=== PATIENT | female | born 1965 | race Caucasian/White ===

== ENCOUNTER 2022-06-07 01:01 | Day surgery (SDC) | payer OTHER, SELFPAY ==
[2022-05-31 10:42] VITALS: BMI 42.5
--- NOTE | 2022-05-31 10:50 | PC.NURSE ---
Report to the Outpatient Waiting Room, entrance under the green pavilion located off [facility], at time 0630 on date 06/07/22. Planned Procedure Time: 0830. Time changes happen often and if your time is changed the preop area will call you the afternoon before. - You and your visitor will be asked to self-screen and do not enter if you have any COVID symptoms. - A mask is optional within the hospital at this time. Patients may have clear liquids (water, carbonated beverages, clear teas, apple juice) until 3 hours prior to surgery with a maximum of 20 ounces. - No food from midnight until time of surgery Take the following medications with a SIP of water the morning of surgery: LEVOTHYROXINE DO NOT STOP ANY OF YOUR OTHER PRESCRIPTION MEDICATIONS PRIOR TO SURGERY?EXCEPT THE FOLLOWING Medications to discontinue per physician: VITAMINS/SUPPLEMENTS Date to take last dose: 06/03/22 Please no make-up, nail irish, hairspray, perfume, deodorant, or body powder the day of surgery. No jewelry (including any body piercings) or valuables the day of surgery, leave them at home. Please take a shower or bath the night before, or the morning of, surgery with an antibacterial soap. Wear comfortable, loose fitting clothing. - Jewelry must be removed prior to entering the operating room. Rings and piercings that are not removed may be cut off. - The hospital will not accept responsibility for valuables. - Please leave all valuables, including medications, at home the day of surgery. If you are going home after surgery, a licensed spotter driver must drive you home. - NO public transportation without another adult if you receive anesthesia. - We recommend that an adult stay with you for 24 hours following discharge. - We also recommend that you do not drive, make important decision, drink alcoholic beverages, or take any drugs that were not prescribed by your health care provider for at least 24 hours after your discharge time. Follow any additional instructions given to you from your surgeon. If you or anyone in your household have experienced Covid symptoms in the past week, please notify your surgeon or the nurse liaison at the phone number below for possible testing. Telephone instructions given to PT - KYUNG CHRISTENSEN and asked if any additional questions and then verbalized understanding. Patient advised to call surgeon office or pre surgery nurse liaison [phone] if any additional questions.
[2022-06-07] MEDS: ACETAMINOPHEN 500 MG TABLET 1000 MG PO (07:10)
[2022-06-07 07:19] VITALS: BP 153/69; PULSE 83; RESP 14; TEMP 35.6; O2SAT 97
--- NOTE | 2022-06-07 07:27 | P.HP_ITS ---
History of Present Illness History of Present Illness Consent: Risks, benefits, and alternatives have been discussed and questions answered. Patient agrees to proceed with procedure. Chief complaint: Post Menopausal Bleeding Narrative: Ariella Estrella is a 57 year old female with postmenopausal bleeding. Pelvic ultrasound revealed a thickened endometrium. It was recommended to proceed with D&C hysteroscopy for further evaluation. Risks of infection, bl eeding, and perforation were reviewed. Possible pathology was also discussed. Patient voices understanding and agrees to proceed. Review of Systems Review of Systems: not repeated day of surgery; patient states no changes in status [facility] Past Medical History Medical History (Updated 06/07/22 @ 07:30 by Norma Luther MD) Chronic kidney disease, stage II (mild) HTN (hypertension) Hypercholesterolemia Hypothyroid Surgical History Surgical History (Updated 06/07/22 @ 07:30 by Norma Luther MD) History of carpal tunnel release History of foot surgery History of knee surgery Social History Social History Smoking status: Never smoker Alcohol intake: current Drinks per week: 4 Substance use: never Substance use type: does not use Living arrangements: with family Spiritual care concerns: No Meds Home Medications and Allergies Home Medications Medication Instructions Recorded Confirmed Type cholecalciferol (vitamin D3) 125 125 mcg PO DAILY 05/31/22 05/31/22 History mcg (5,000 unit) tablet (Vitamin D3) cranberry 500 mg capsule 500 mg PO DAILY 05/31/22 05/31/22 History finasteride 5 mg tablet 5 mg PO DAILY 05/31/22 05/31/22 History hydroxychloroquine 200 mg tablet 200 mg PO BID 05/31/22 05/31/22 History levothyroxine 175 mcg tablet 175 mcg PO DAILY 05/31/22 05/31/22 History (Synthroid) lisinopril 10 mg tablet 10 mg PO DAILY 05/31/22 05/31/22 History Allergies Allergy/AdvReac Type Severity Reaction Status Date / Time No Known Allergies Allergy Verified 06/07/22 07:23 Vital Signs Vital Signs - 24 hr 06/07/22 07:19 Temperature 96.1 F L Pulse Rate 83 Respiratory Rate 14 Blood Pressure 153/69 H Pulse Oximetry 97 Oxygen Delivery Room Air Exam Const: General: obese ( BMI of 44) Orientation/consciousness: patient oriented x3 Resp: Effort & Inspection: normal respiratory effort Cardio: Rate: regular rate GI: GI Palp: Yes Soft to palpation, No Tenderness to palpation present (GI) and No Palpable mass present : External Female Exam: normal external appearance Speculum Exam - Vagina: normal appearance of the vagina and normal vaginal discharge Speculum Exam - Cervix: normal appearance of the cervix Bimanual exam- vagina & uterus: uterine size normal and consistency normal Bimanual Exam- Adnexa, other: normal adnexae and No adnexal tenderness Neuro: General: patient oriented x3 Assessment and Plan Assessment and plan (1) Post-menopausal bleeding: Code(s): N95.0 - Postmenopausal bleeding Status: Acute Assessment and Plan: plan to proceed with D&C hysteroscopy
--- NOTE | 2022-06-07 07:27 | WPDHPUPDATE1 ---
History and Physical Update Update Date/Time: 06/07/22 07:27 History and Physical has been reviewed, including an updated exam of the patient. There are NO changes in the patient's condition. Risks, benefits, and alternatives have been discussed and questions answered. Patient agrees to proceed with procedure.
--- NOTE | 2022-06-07 08:06 | P.PNAN_ITS ---
Anes - Initial Pre Proc Eval Procedure: Operation Date: 06/07/22 08:30 Proposed Procedures p Hysteroscopy Dilation and Curettage - Norma Luther MD Date/Time: 06/07/22 08:06 Surgeon: Norma Luther MD Pre Op Diagnosis: Post Menopausal Bleeding Patient Data Age: 57 Gender: F Height: 1.8 m Weight: 140 kg Last Vital Signs Temp 35.6 C L 06/07/22 07:19 Pulse 83 06/07/22 07:19 Resp 14 06/07/22 07:19 BP 153/69 H 06/07/22 07:19 Pulse Ox 97 06/07/22 07:19 O2 Del Method Room Air 06/07/22 07:19 Allergies Allergy/AdvReac Type Severity Reaction Status Date / Time No Known Allergies Allergy Verified 06/07/22 07:23 Home Medications Medication Instructions Recorded Confirmed Type cholecalciferol (vitamin D3) 125 125 mcg PO DAILY 05/31/22 05/31/22 History mcg (5,000 unit) tablet (Vitamin D3) cranberry 500 mg capsule 500 mg PO DAILY 05/31/22 05/31/22 History finasteride 5 mg tablet 5 mg PO DAILY 05/31/22 05/31/22 History hydroxychloroquine 200 mg tablet 200 mg PO BID 05/31/22 05/31/22 History levothyroxine 175 mcg tablet 175 mcg PO DAILY 05/31/22 05/31/22 History (Synthroid) lisinopril 10 mg tablet 10 mg PO DAILY 05/31/22 05/31/22 History Patient hx anesthesia problems: none Family hx anesthesia problems: none Results Review: All pre-operative results and documents have been reviewed as part of the pre- operative evaluation. [facility] Past Medical History Medical History (Updated 06/07/22 @ 08:08 by Robin Najera MD) Chronic kidney disease, stage II (mild) HTN (hypertension) Hypercholesterolemia Hypothyroid Morbid obesity with BMI of 40.0-44.9, adult SG (obstructive sleep apnea) Surgical History Surgical History (Updated 06/07/22 @ 07:30 by Norma Luther MD) History of carpal tunnel release History of foot surgery History of knee surgery Social History Social History Smoking status: Never smoker Alcohol intake: current Drinks per week: 4 Substance use: never Substance use type: does not use Living arrangements: with family Spiritual care concerns: No Anes - Eval Final PreProcedure Day of Procedure 06/07/22 08:06 Patient weight: morbidly obese Heart: regular rate and rhythm Lungs: clear to auscultation and normal air movement Airway: Mallampati scale class II Neurological: alert and oriented Last oral intake: >/= 8 hours ASA classification: III Emergent: no Anesthetic plan: proceed Anesthesia type and monitoring: general LMA Results Review: All pre-operative results and documents have been reviewed as part of the pre- operative evaluation. Informed Consent: The patient's anesthetic plan and its attendant risks and benefits were discussed with the patient/family/POA. Questions were solicited and answers provided to the satisfaction of the patient/family/POA.
[2022-06-07] MEDS: KETOROLAC 30 MG/ML VIAL (*BKC) IV PUSH (08:32)
[2022-06-07] MEDS: LIDOCAINE HCL 1% LOCAL INJ 20 ML VIAL 10 ML INFILTRATE (08:51)
--- NOTE | 2022-06-07 08:54 | P.OP_ITS ---
Procedure Note - Detailed Date of Procedure 06/07/22 Pre-op Diagnosis Post Menopausal Bleeding Post-op Diagnosis Same Procedure Performed D&C hysteroscopy with resection of polyp Surgeon Norma Luther MD Anesthesia MAC and Local Findings uterus sounds to 8cm; large polyp arising from the right cornua; atrophic endometrium Description of Procedure The patient is taken to the operating room and placed under anesthesia in the dorsal lithotomy position. She was prepped and draped in the usual sterile fashion. [place] speculum was placed in the vagina and the cervix grasped on the anterior lip with a tenaculum. The uterus is sounded to 8cm. The diagnostic hysteroscope was placed with the above-stated findings. The Aveeta resection device was placed through the hysteroscope and the polyp removed in its entirety. The remainder of the endometrium appears severely atrophic. The sharp curette is used to curette the endometrium until a good uterine cry was noted in all areas. Minimal if any material was obtained. All instruments were then removed. The patient is taken to recovery in stable condition. Sponge, needle, and instrument counts are correct per the OR staff. Estimated Blood Loss 5 Drains No Packing No Pathology Yes ( Endometrial shavings and curettings) Complications No immediate complications Condition Stable Disposition PACU
[2022-06-07 08:57] VITALS: BP 116/68; PULSE 67; RESP 16; O2SAT 95
[2022-06-07] MEDS: LACTATED RINGERS 1,000 ML 30 ML IV CONT (08:57)
[2022-06-07 09:15] VITALS: BP 121/61; PULSE 62; RESP 12
[2022-06-07 09:45] VITALS: BP 119/52; PULSE 56; RESP 20
== END 2022-06-07 09:55 | disposition home or self-care (01) ==
PROVIDERS: Visit Provider Obstetrics & Gynecology Gynecology
PROC: 0U5B8ZZ Destruction of Endometrium, Via Natural or Artificial Opening Endoscopic (ICD-10-PCS; CPT 58563; principal; 2022-06-07 08:30)
DX: N95.0 Postmenopausal bleeding (principal); N84.0 Polyp of corpus uteri; I12.9 Hypertensive chronic kidney disease with stage 1 through stage 4 chronic kidney disease, or unspecified chronic kidney disease; N18.2 Chronic kidney disease, stage 2 (mild); E78.00 Pure hypercholesterolemia, unspecified; E03.9 Hypothyroidism, unspecified; G47.33 Obstructive sleep apnea (adult) (pediatric); E66.01 Morbid (severe) obesity due to excess calories; Z68.41 Body mass index [BMI] 40.0-44.9, adult
CPT/HCPCS: 58558; 88305; A9270; J1100; J1885; J2250; J2405; J2704; J3010; J7120

== ENCOUNTER 2023-07-25 00:51 | Day surgery (SDC) | payer OTHER, SELFPAY ==
[2023-07-14 09:58] VITALS: BMI 42.0
--- NOTE | 2023-07-14 10:05 | PC.NURSE ---
Report to the Outpatient Waiting Room, entrance under the green pavilion located off [facility], at time _0900_ on date _[id number]_. Planned Procedure Time: _1100_. Time changes happen often and if your time is changed the preop area will call you the afternoon before. - You and your visitor will be asked to self-screen and do not enter if you have any COVID symptoms. - A mask is optional within the hospital at this time. Patients may have clear liquids (water, carbonated beverages, clear teas, apple juice) until 3 hours prior to surgery with a maximum of 20 ounces. - No food from midnight until time of surgery Take the following medications with a SIP of water the morning of surgery: __Levothyroxine DO NOT STOP ANY OF YOUR OTHER PRESCRIPTION MEDICATIONS PRIOR TO SURGERY ?EXCEPT THE FOLLOWING Medications to discontinue per physician Cranberry Date to take last [id number] Please no make-up, nail tu[place], hairspray, perfume, deodorant, or body powder the day of surgery. No jewelry (including any body piercings) or valuables the day of surgery, leave them at home. Please take a shower or bath the night before, or the morning of, surgery with an antibacterial soap. Wear comfortable, loose fitting clothing. - Jewelry must be removed prior to entering the operating room. Rings and piercings that are not removed may be cut off. - The hospital will not accept responsibility for valuables. - Please leave all valuables, including medications, at home the day of surgery. If you are going home after surgery, a licensed superintendent drivers must drive you home. - NO public transportation without another adult if you receive anesthesia. - We recommend that an adult stay with you for 24 hours following discharge. - We also recommend that you do not drive, make important decision, drink alcoholic beverages, or take any drugs that were not prescribed by your health care provider for at least 24 hours after your discharge time. Follow any additional instructions given to you from your surgeon. If you or anyone in your household have experienced Covid symptoms in the past week, please notify your surgeon or the nurse liaison at the phone number below for possible testing. Telephone instructions given to __Debbie_and asked if any additional questions and then verbalized understanding. Patient advised to call surgeon office or pre surgery nurse liaison [phone] if any additional questions.
--- NOTE | 2023-07-25 07:12 | P.HP_ITS ---
History of Present Illness History of Present Illness Consent: Risks, benefits, and alternatives have been discussed and questions answered. Patient agrees to proceed with procedure. Chief complaint: Post Menopasual Bleeding Narrative: Ariella Estrella is a 58 year old female with 2 days of bright red bleeding. Patient with history endometrial polyps in her last hysteroscopy. It was recommended to undergo D&C hysteroscopy for further evaluation. Risks of infection, bleeding, perforation, and possible pathology are reviewed. Patient voices understanding and agrees to proceed. Review of Systems Review of Systems: not repeated day of surgery; patient states no changes in status [facility] Past Medical History Medical History (Updated 06/07/22 @ 08:08 by Robin NajeraMD) Chronic kidney disease, stage II (mild) HTN (hypertension) Hypercholesterolemia Hypothyroid Morbid obesity with BMI of 40.0-44.9, adult SG (obstructive sleep apnea) Surgical History Surgical History (Updated 07/25/23 @ 07:14 by Norma Luther MD) History of carpal tunnel release History of foot surgery History of hysteroscopy 2022 with endometrial polyps History of knee surgery Social History Social History Smoking status: Never smoker Alcohol intake: current Drinks per week: 4 Substance use: never Substance use type: does not use Living arrangements: with family Spiritual care concerns: No Meds Home Medications and Allergies Home Medications Medication Instructions Recorded Confirmed Type cranberry 500 mg capsule 500 mg PO DAILY 05/31/22 07/14/23 History finasteride 5 mg tablet 2.5 mg PO DAILY 05/31/22 07/14/23 History hydroxychloroquine 200 mg tablet 200 mg PO BID 05/31/22 07/14/23 History levothyroxine 175 mcg tablet 175 mcg PO DAILY 05/31/22 07/14/23 History (Synthroid) lisinopril 10 mg tablet 10 mg PO DAILY 05/31/22 07/14/23 History rosuvastatin 5 mg tablet 5 mg PO HS 07/14/23 07/14/23 History Allergies Allergy/AdvReac Type Severity Reaction Status Date / Time No Known Allergies Allergy Verified 07/14/23 09:56 Exam Const: General: healthy appearing and alert Orientation/consciousness: patient oriented x3 Resp: Effort & Inspection: normal respiratory effort GI: GI Palp: Yes Soft to palpation, No Tenderness to palpation present (GI) and No Palpable mass present : External Female Exam: normal external appearance Speculum Exam - Vagina: normal appearance of the vagina and normal vaginal discharge Speculum Exam - Cervix: normal appearance of the cervix Bimanual exam- vagina & uterus: uterine size normal and consistency normal Bimanual Exam- Adnexa, other: normal adnexae and No adnexal tenderness Neuro: General: patient oriented x3 Assessment and Plan Assessment and plan (1) Post-menopausal bleeding: Code(s): N95.0 - Postmenopausal bleeding Status: Acute Assessment and Plan: plan to proceed with D&C hysteroscopy
--- NOTE | 2023-07-25 07:12 | WPDHPUPDATE1 ---
History and Physical Update Update Date/Time: 07/25/23 07:12 History and Physical has been reviewed, including an updated exam of the patient. There are NO changes in the patient's condition. Risks, benefits, and alternatives have been discussed and questions answered. Patient agrees to proceed with procedure.
[2023-07-25 08:40] VITALS: BP 136/60; PULSE 73; RESP 14; TEMP 35.7; O2SAT 98
[2023-07-25] MEDS: LACTATED RINGERS 1,000 ML 30 ML IV CONT (08:40)
[2023-07-25] MEDS: ACETAMINOPHEN 500 MG TABLET 1000 MG PO (08:40)
--- NOTE | 2023-07-25 09:11 | P.PNAN_ITS ---
Anes - Initial Pre Proc Eval Procedure: Operation Date: 07/25/23 10:15 Proposed Procedures p Hysteroscopy Dilation and Curettage - Norma Luther MD Date/Time: 07/25/23 09:11 Surgeon: Norma Luther MD Pre Op Diagnosis: Post Menopasual Bleeding Patient Data Age: 58 Gender: F Height: 1.8 m Weight: 136.6 kg Allergies Allergy/AdvReac Type Severity Reaction Status Date / Time No Known Allergies Allergy Verified 07/14/23 09:56 Home Medications Medication Instructions Recorded Confirmed Type cranberry 500 mg capsule 500 mg PO DAILY 05/31/22 07/14/23 History finasteride 5 mg tablet 2.5 mg PO DAILY 05/31/22 07/14/23 History hydroxychloroquine 200 mg tablet 200 mg PO BID 05/31/22 07/14/23 History levothyroxine 175 mcg tablet 175 mcg PO DAILY 05/31/22 07/14/23 History (Synthroid) lisinopril 10 mg tablet 10 mg PO DAILY 05/31/22 07/14/23 History rosuvastatin 5 mg tablet 5 mg PO HS 07/14/23 07/14/23 History Patient hx anesthesia problems: none Family hx anesthesia problems: none Results Review: All pre-operative results and documents have been reviewed as part of the pre- operative evaluation. [facility] Past Medical History Medical History Chronic kidney disease, stage II (mild) HTN (hypertension) Hypercholesterolemia Hypothyroid Morbid obesity with BMI of 40.0-44.9, adult SG (obstructive sleep apnea) Surgical History Surgical History History of carpal tunnel release History of foot surgery History of hysteroscopy 2022 with endometrial polyps History of knee surgery Social History Social History Smoking status: Never smoker Alcohol intake: current Drinks per week: 4 Substance use: never Substance use type: does not use Living arrangements: with family Spiritual care concerns: No Anes - Eval Final PreProcedure Day of Procedure 07/25/23 09:11 Patient weight: morbidly obese Heart: regular rate and rhythm Lungs: clear to auscultation Airway: Mallampati scale class II Neurological: alert and oriented Last oral intake: >/= 8 hours ASA classification: III Emergent: no Anesthetic plan: proceed Anesthesia type and monitoring: general GIVS and standard monitoring Results Review: All pre-operative results and documents have been reviewed as part of the pre- operative evaluation. HTN, hyperlipidemia, SG on CPAP (very mild per pt), active w walking outside, no cp or sob. Informed Consent: The patient's anesthetic plan and its attendant risks and benefits were discussed with the patient/family/POA. Questions were solicited and answers provided to the satisfaction of the patient/family/POA.
[2023-07-25] MEDS: KETOROLAC 15 MG/ML VIAL (*BKC) IV PUSH (10:10)
[2023-07-25 11:06] VITALS: BP 127/63; PULSE 67; RESP 16; O2SAT 95
--- NOTE | 2023-07-25 11:09 | W.PM.PROC2 ---
Procedure Note - Detailed Date of Procedure 07/25/23 Pre-op Diagnosis Post Menopasual Bleeding Post-op Diagnosis Same Procedure Performed D&C hysteroscopy Surgeon Norma Luther MD Anesthesia MAC Findings uterus sounds to 8cm and appears grossly normal Description of Procedure The patient is taken to the operating room and placed under anesthesia in the dorsal lithotomy position. She was prepped and draped in the usual sterile fashion. [place] speculum was placed in the vagina and the cervix grasped on the anterior lip with a tenaculum. The uterus is sounded to 8cm. The diagnostic hysteroscope was placed and with the atrophic normal appearance it is removed. The OO sharp curette is used to curette the endometrium until a good uterine cry was noted in all areas. Minimal material is obtained consistent with the atrophic appearance. All instruments are removed. Sponge, needle, and instrument counts are correct per the OR staff. Patient was awakened from anesthesia and taken to recovery in stable condition. Estimated Blood Loss 5 Drains No Packing No Pathology Yes ( Endometrial curetting) Complications No immediate complications Condition Stable Disposition PACU
[2023-07-25 11:30] VITALS: BP 127/66; PULSE 61; RESP 16
[2023-07-25 12:00] VITALS: BP 124/61; PULSE 53; RESP 16
== END 2023-07-25 12:06 | disposition home or self-care (01) ==
PROVIDERS: Visit Provider Obstetrics & Gynecology Gynecology
PROC: 0U5B8ZZ Destruction of Endometrium, Via Natural or Artificial Opening Endoscopic (ICD-10-PCS; CPT 58563; principal; 2023-07-25 10:15)
DX: N95.0 Postmenopausal bleeding (principal); I12.9 Hypertensive chronic kidney disease with stage 1 through stage 4 chronic kidney disease, or unspecified chronic kidney disease; N18.2 Chronic kidney disease, stage 2 (mild); E78.00 Pure hypercholesterolemia, unspecified; E03.9 Hypothyroidism, unspecified; G47.33 Obstructive sleep apnea (adult) (pediatric); E66.01 Morbid (severe) obesity due to excess calories; Z68.41 Body mass index [BMI] 40.0-44.9, adult
CPT/HCPCS: 58558; 88305; A9270; J1885; J2250; J2704; J3010; J7120